=== PATIENT | male | born 1995 | race Hispanic/Latino ===

== ENCOUNTER 2018-07-07 23:52 | Emergency (ER) | payer OTHER, SELFPAY ==
[2018-07-07 23:57] VITALS: BP 150/96; PULSE 88; RESP 15; TEMP 36.9; O2SAT 98; BMI 37.3
--- NOTE | 2018-07-08 00:52 | ED.NECK ---
HPI - Neck Pain/Injury General Chief Complaint: Neck Pain/Injury Stated Complaint: slipped on ice today neck is tight Time Seen by Provider: 07/08/18 00:50 Source: patient Mode of arrival: ambulatory Limitations: no limitations History of Present Illness HPI Narrative: patient is a 22-year-old male who presents with neck pain. He says he slipped and fell on the ice this morning he he did not hit is head no loss of consciousness. He took some ibuprofen 9:00 a.m. this morning. He evening he feels like the side is neck are tight. He has no numbness or tingling in his hands no weakness. He has no other back pain nausea vomiting or headache. He MD complaint: neck pain Quality: spasming Related Data Allergies Allergy/AdvReac Type Severity Reaction Status Date / Time No Known Drug Allergies Allergy Verified 07/07/18 23:57 Review of Systems Review of Systems GENERAL: Denies chills, fatigue, malaise, fever, sweats, travel HEENT: neck pain injured RESPIRATORY: Denies dyspnea, cough, wheezing, hemoptysis, sputum. CARDIOVASCULAR: Denies chest pain, palpitations, orthopnea, edema GASTROINTESTINAL: Denies nausea, vomiting, abdominal pain, diarrhea, constipation, melena. : Denies dysuria, frequency, incontinence, hematuria, urinary retention, flank pain. MUSCULOSKELETAL: Denies weakness, joint pain, or bony pain SKIN: No rash, no erythema, no pruritus NEUROLOGIC: Denies weakness, dizziness, headache, numbness, change in speech, confusion PSYCHIATRIC: No concerning psychosocial issues. 12 point review of systems is negative except for those stated above and HPI PFSH Social History Smoking Status: Unknown if ever smoked Social History Smoking Status: Unknown if ever smoked Exam Initial Vital Signs Initial Vital Signs: Vital Signs Temperature 98.4 F 07/07/18 23:57 Pulse Rate 88 07/07/18 23:57 Respiratory Rate 15 07/07/18 23:57 Blood Pressure 150/96 H 07/07/18 23:57 Pulse Oximetry 98 07/07/18 23:57 GENERAL: alert young male sitting in gurney no acute distress HEENT: Head atraumatic,EOMI, pupils reactive, NECK: no midline or vertebral tenderness some mild paraspinal muscles but he actually has full range of motion. CARDIOVASCULAR: Regular rate and rhythm without murmurs, rubs or gallops. RESPIRATORY: Breath sounds equal bilaterally, no wheezes rales or rhonchi. ABDOMEN: Soft, nontender. Normoactive bowel sounds all 4 quadrants. No guarding or rebound. EXTREMITIES: Normal range of motion, no clubbing or edema. Neurovascularly intact NEUROLOGICAL: Alert and oriented x4.Normal gait and speech. SKIN: Warm, dry, no laceration, no petechiae, no rashes or lesions. Course Orders Ordered: Discontinued Medications Ketorolac Tromethamine (Toradol) 60 mg IM NOW ONE Stop: 07/08/18 00:59 Last Admin: 07/08/18 01:06 Dose: 60 mg Vital Signs - 8 hr 07/07/18 23:57 07/08/18 01:19 Temperature 98.4 F Pulse Rate 88 86 Respiratory Rate 15 13 Blood Pressure 150/96 H 136/91 H Pulse Oximetry 98 98 Discharge Plan Departure Patient Disposition: Home Clinical Impression: Strain of neck muscle Qualifiers: Encounter type: initial encounter Qualified Code(s): S16.1XXA - Strain of muscle, fascia and tendon at neck level, initial encounter Discharge Date/Time: 07/08/18 01:22 Interventions: ED Discharge Assessment Last Done: 07/08/18 01:19 Instructions: DI for Whiplash Activity Restrictions/Additional Instructions: *You have been diagnosed with cervical sprain *What to do: increase activity as tolerated, light stretching encouraged *Continue to take medications as directed ibuprofen 800 mg every 8 hr if needed for pain or muscle spasm *Follow up with your primary care provider in 2-3 days *Return to ER if you should have numbness tingling increasing pain or any new, worsening or concerning symptoms Referrals: [facility] [Provider Group]
[2018-07-08] MEDS: KETOROLAC 60 MG/2 ML VIAL IM (01:06)
[2018-07-08 01:19] VITALS: BP 136/91; PULSE 86; RESP 13; O2SAT 98
== END 2018-07-08 01:22 | disposition home or self-care (01) ==
PROVIDERS: Emergency Provider Emergency Medicine
DX: S16.1XXA Strain of muscle, fascia and tendon at neck level, initial encounter (principal); W01.0XXA Fall on same level from slipping, tripping and stumbling without subsequent striking against object, initial encounter
CPT/HCPCS: 96372; 99282; 99283; J1885